=== PATIENT | male | born 1985 | race African-American/Black ===

== ENCOUNTER 2017-02-24 18:44 | Emergency (ER) | payer MEDICAID ==
[~2017-02-24] VITALS: Ht 182.9 cm; Wt 81.6 kg
[~2017-02-24 18:44] MED LIST: CIPRO500 MG PO; FIORICET1 EA ORAL; IBUPROFEN600 MG ORAL; NKM; NORCO 5-325 TA1 EACH ORAL; NORCO 5-325 TA1 EACH PO; ONDANSETRON ODT4 MG ORAL; PENICILLIN V P500 MG PO
[2017-02-24 19:15] VITALS: BP 116/58
[2017-02-24] MEDS ORDERED: PREDNISONE20 MG ORAL (19:44)
[2017-02-24] MEDS ORDERED: PROAIR HFA8.5 GM INH (19:44)
[2017-02-24] MEDS ORDERED: PROMETHAZI6.25 MG/1 ORAL (19:44)
[2017-02-24 19:57] VITALS: BP 116/58
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
--- NOTE | 2017-02-25 10:02 | Diagnostic Imaging Report ---
Indication: COUGH Technique: Two views of the chest Comparison: none Findings: Lungs and pleural spaces are clear. Calcified granuloma is seen in the right lung apex. The heart size is normal Impression: No acute process Evidence of old granulomatous disease
== END 2017-02-24 19:57 | disposition home or self-care (01) ==
LOC: EMR 19:30
DX: J40 Bronchitis, not specified as acute or chronic (principal)
CPT/HCPCS: 71020; 99284